=== PATIENT | male | born 1995 | race Asian ===

== ENCOUNTER 2018-06-11 02:40 | Emergency (ER) | payer SELFPAY ==
[~2018-06-11] VITALS: Ht 172.7 cm; Wt 99.8 kg
--- NOTE | 2018-06-11 03:44 | ED Cough/URI ---
General Chief Complaint: Fever-Adult/Adol Stated Complaint: HIGH FEVER,COUGH,RUNNY NOSE Nursing Triage Note: fever, nonproductive cough x5 days. Sepsis Screen: Possible Sepsis Risk Source: patient History of Present Illness Date Seen by Provider: Jun 11, 2018 Time Seen by Provider: 02:59 Initial Comments PT ARRIVES VIA POV FROM HOME--WANTS WHEELCHAIR ON ARRIVAL AND TO ER ROOM [place]--LARGE GROUP OF PEOPLE WENT TOGETHER. PT STATES HE DRANK A LARGE AMOUNT OF ALCOHOL ON TRIP STATES HE STARTED GETTING SICK WEDNESDAY NIGHT OTHER PEOPLE ON TRIP HAVE BEEN SICK WITH SAME C/O SUBJECTIVE FEVER C/O NON-PRODUCTIVE COUGH C/O CLEAR RUNNY NOSE C/O HEADACHE C/O BODY ACHES HAS NOT TAKEN ANYTHING FOR SYMPTOMS AT ANY TIME SYMPTOMS NO DIFFERENT TODAY HAS NOT SOUGHT CARE UNTIL TODAY. PT IS [employer] [facility] Allergies and Home Medications Allergies Coded Allergies: No Known Drug Allergies (Unverified , 06/11/18) Home Medications No Active Prescriptions or Reported Meds Patient Home Medication List Home Medication List Reviewed: Yes Review of Systems Review of Systems Constitutional: see HPI, fever, malaise, weakness EENTM: see HPI, nose congestion, other (CLEAR RUNNY NOSE) Respiratory: see HPI, cough Cardiovascular: no symptoms reported Gastrointestinal: no symptoms reported Genitourinary: no symptoms reported Musculoskeletal: see HPI, other (BODY ACHES) Skin: no symptoms reported Psychiatric/Neurological: See HPI, Headache Hematologic/Lymphatic: No Symptoms Reported Immunological/Allergic: no symptoms reported Past Iwbvrmh-Mzmmiz-Vzouin Hx Patient Social History Alcohol Use: Occasionally Uses (VERY HEAVY AT TIMES) Recreational Drug Use: No Smoking Status: Current Everyday Smoker (2 PPD SINCE AGE 13) Type Used: Cigarettes 2nd Hand Smoke Exposure: Yes Recent Foreign Travel: No Contact w/Someone Who Travel: No Recent Infectious Disease Expo: No Recent Hopitalizations: No Immunizations Up To Date Tetanus Booster (TDap): Less than 5yrs PED Vaccines UTD: Yes Seasonal Allergies Seasonal Allergies: No Past Medical History Surgeries: No Respiratory: No Cardiac: No Neurological: No Genitourinary: No Gastrointestinal: No Musculoskeletal: No Endocrine: No HEENT: No Cancer: No Psychosocial: No Integumentary: No Blood Disorders: No Physical Exam Vital Signs - First Documented 06/11/18 02:57 Temp 101.5 Pulse 102 Resp 18 B/P (MAP) 145/73 (97) Pulse Ox 95 O2 Delivery Room Air Capillary Refill : Less Than 3 Seconds Height: 5'8.00" Weight: 220lbs. oz. 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 II-XII nml as tested, no motor/sensory deficits, alert, normal mood/affect, oriented x 3 Skin: normal color, warm/dry Progress/Results/Core Measures Suspected Sepsis Recent Fever Within 48 Hours: Yes Infection Criteria Present: Suspected New Infection New/Unexplained Altered Menta: No Sepsis Screen: Possible Sepsis Risk SIRS Temperature:101.5 Pulse: 102 Respiratory Rate: 18 Blood Pressure 145 /73 Mean: 97 Results/Orders Micro Results Microbiology 06/11/18 Influenza Types A,B Antigen (JOEL) - Final, Complete My Orders Orders - JOANIE HERNANDEZ DO Influenza A And B Antigens (06/11/18 02:59) Vital Signs/I&O 06/11/18 06/11/18 02:57 04:10 Temp 101.5 101.0 Pulse 102 98 Resp 18 18 B/P (MAP) 145/73 (97) 142/71 (94) Pulse Ox 95 96 O2 Delivery Room Air Room Air Capillary Refill : Less Than 3 Seconds Blood Pressure Mean: 97 Progress Note : Progress Note PT IS OUTSIDE TREATMENT WINDOW FOR ANTI-VIRAL THERAPY AT THIS TIME, SYMPTOMS HAVE BEEN ONGOING FOR 5 DAYS Departure Impression Primary Impression: Influenza A Disposition: 01 HOME, SELF-CARE Condition: Stable Departure-Patient Inst. Referrals: [facility] (PCP/Family) Primary Care Physician Patient Instructions: Flu, Adult (DC) Add. Discharge Instructions: LOTS OF CLEAR LIQUIDS--WATER, BROTH, JELLO, GATORADE TYLENOL 1 GRAM / MOTRIN 800 MG 4 TIMES A DAY NEEDED FOR PAIN OR FEVER OVER THE COUNTER MEDICATIONS FOR COUGH AND CONGESTION FOLLOW UP WITH [facility] IN 3-4 DAYS IF NO BETTER NO SCHOOL FOR 1 WEEK FROM ONSET OF SYMPTOMS All discharge instructions reviewed with patient and/or family. Voiced understanding. Scripts No Active Prescriptions or Reported Meds Work/School Note: School/Childcare Release Date Seen in the Emergency Department: Jun 11, 2018 Return to School: Jun 13, 2018 JOANIE HERNANDEZ DO Jun 11, 2018 03:44
[2018-06-11 04:10] VITALS: BP 142/71
== END 2018-06-11 04:07 | disposition home or self-care (01) ==
LOC: ER 02:45
DX: J10.1 Influenza due to other identified influenza virus with other respiratory manifestations (principal); F17.210 Nicotine dependence, cigarettes, uncomplicated
CPT/HCPCS: 87804